=== PATIENT | male | born 1970 | race Caucasian/White ===

== ENCOUNTER 2016-09-16 21:14 | Emergency (ER) | payer OTHER ==
[~2016-09-16] VITALS: Ht 180.3 cm; Wt 83.9 kg
--- NOTE | 2016-09-16 21:30 | NUR ---
PT CAME IN WITH LACERATION ABOVE RIGHT EYE. HOCKEY STICK TO FACE. RIGHT EYE IRRITATION -KO. NAD NOTED. VSS. SEEN BY PA. SAFETY AND COMFORT MEASURES PROVIDED. WILL MONITOR.
[2016-09-16] MEDS ORDERED: LIDOCAINE 0.5% HCL 50 ML VIAL ONE (22:33)
[2016-09-16] MEDS: TETRACAINE HCL/PF 0.5% UD 2 ML BOTTLE RIGHTEYE ONE (22:34)
[2016-09-16] MEDS ORDERED: TETRACAINE HCL/PF 0.5% UD 2 ML BOTTLE ONE (22:34)
[2016-09-16] MEDS: FLUORESCEIN SODIUM OPHTH 1 EA STRIP OP ONE (22:34)
--- NOTE | 2016-09-16 23:00 | NUR ---
PA AT BS FOR WOUND PROCEDURE.
--- NOTE | 2016-09-16 23:30 | NUR ---
Patient discharged to home in stable condition. Written and verbal after care instructions given. Patient verbalizes understanding of instruction. Pt ambulatory with a steady gait.
[2016-09-16 23:54] VITALS: BP 122/77
== END 2016-09-16 23:55 | disposition home or self-care (01) ==
LOC: ER 21:22
DX: S01.111A Laceration without foreign body of right eyelid and periocular area, initial encounter (principal); S05.01XA Injury of conjunctiva and corneal abrasion without foreign body, right eye, initial encounter; W21.210A Struck by ice hockey stick, initial encounter; Y93.89 Activity, other specified; Y92.89 Other specified places as the place of occurrence of the external cause; Y99.8 Other external cause status
CPT/HCPCS: A6402; J3490

== ENCOUNTER 2016-09-17 14:32 | Emergency (ER) | payer OTHER ==
[~2016-09-17] VITALS: Ht 180.3 cm; Wt 83.9 kg
[2016-09-17] MEDS ORDERED: TETRACAINE HCL/PF 0.5% UD 2 ML BOTTLE ONE (14:59)
[2016-09-17] MEDS ORDERED: FLUORESCEIN SODIUM OPHTH 1 EA STRIP ONE (14:59)
[2016-09-17] MEDS ORDERED: FLUORESCEIN SODIUM OPHTH 1 EA STRIP OP ONE (15:00)
[2016-09-17] MEDS ORDERED: TETRACAINE HCL 0.5% OPHTALMIC 15 ML BOTTLE OP ONE (15:00)
--- NOTE | 2016-09-17 15:53 | NUR ---
Patient discharged to home in stable condition. Written and verbal after care instructions given. Patient verbalizes understanding of instruction.
[2016-09-17 15:55] VITALS: BP 123/72
== END 2016-09-17 15:56 | disposition home or self-care (01) ==
LOC: ER 14:38
DX: S05.01XA Injury of conjunctiva and corneal abrasion without foreign body, right eye, initial encounter (principal); X58.XXXA Exposure to other specified factors, initial encounter; Y93.89 Activity, other specified; Y92.89 Other specified places as the place of occurrence of the external cause; Y99.9 Unspecified external cause status
CPT/HCPCS: 99283; A4606; A6402; A6410; Z7610